=== PATIENT | male | born 1950 | race Caucasian/White ===

== ENCOUNTER 2018-03-30 13:51 | Outpatient (CLI) | payer MEDICARE ==
[~2018-03-30] VITALS: Ht 175.3 cm; Wt 61.7 kg
[2018-03-30 13:30] VITALS: BP 110/61
[~2018-03-30 13:51] MED LIST: ASPIRIN81 MG ORAL; SIMVASTATIN20 MG ORAL
[2018-03-30] MEDS ORDERED: AMLODIPINE BESYL5 MG ORAL (16:32)
[2018-03-30] MEDS ORDERED: CRESTOR20 MG ORAL (16:32)
[2018-03-30] MEDS ORDERED: BENAZEPRIL HCL10 MG ORAL (16:32)
--- NOTE | 2018-03-31 13:50 | GI Initial Consult Note ---
History of Present Illness General Date patient seen: Mar 30, 2018 Time patient seen: 13:48 Referring physician: O Reason for Consultation: Colonoscopy Present Illness HPI 67 year old male patient presents today for routine colonoscopy screening. The patient last colonoscopy was 5+ years ago. Denies any GI symptoms today; denies abdominal pain, N/V/D or constipation. Ambulatory NAD. Denies any unintentional weight loss or changes in dietary habits. No signs of abuse or neglect. Patient is not fall risk. Home Meds Reported Medications Rosuvastatin Calcium* (CRESTOR*) 20 Mg Tablet, 20 MG ORAL DAILY, TAB 03/30/18 Amlodipine Besylate* (AMLODIPINE BESYLATE*) 5 Mg Tablet, 5 MG ORAL DAILY, TAB 03/30/18 Benazepril Hcl* (BENAZEPRIL HCL*) 10 Mg Tablet, 10 MG ORAL DAILY, TAB 03/30/18 Aspirin* (ASPIRIN*) 81 Mg Tab.chew, 81 MG ORAL DAILY, TAB 02/26/13 Discontinued Reported Medications Simvastatin (ZOCOR) 20 Mg Tablet, 20 MG ORAL BEDTIME, TAB 02/26/13 Med list reviewed/reconciled: Yes Allergies: Coded Allergies: No Known Allergies (Unverified , 02/26/13) Patient History History Provided By: Patient, Medical Record PMH Narrative HLD CKD HTN Denies any surgical history. Pertinent Family History: none Social History: Denies: smoking, alcohol use, drug use, other Review of Systems All Other Systems: negative except mentioned in HPI Physical Exam Vital Signs Date Time Temp Pulse Resp B/P (MAP) Pulse Ox O2 Delivery O2 Flow Rate FiO2 03/30/18 13:30 98.0 72 110/61 99 Sp02 EP Interpretation: reviewed, normal General Appearance: well appearing, no apparent distress, alert Head: normocephalic EENT: PERRL/EOMI, normal ENT inspection Neck: supple Respiratory: normal breath sounds, no respiratory distress Cardiovascular: normal rate Gastrointestinal: normal inspection, non tender, soft, normal bowel sounds, non -distended Rectal: deferred Genitourinary: deferred Musculoskeletal: normal inspection, back normal Neurologic: normal inspection, alert, oriented x3, responsive Psychiatric: normal inspection, judgement/insight normal, memory normal Skin: normal inspection, normal color, no rash, warm/dry, palpation normal, well hydrated Lymphatic: normal inspection, no adenopathy GI: Plan Problems: (1) HLD (hyperlipidemia) (2) CKD (chronic kidney disease) (3) HTN (hypertension) (4) Colonoscopy planned Plan Colonoscopy to be scheduled pending PA, will contact patient. - CLD & (Nulytely/Suprep/Movi-Prep) prep instructions given and acknowledged by patient. - NPO @ [place] day prior procedure explained. Seen with Dr. Cruz. Thank you for this patient referral. The patient was seen and examined at bedside and all new and available data was reviewed in the patients chart. I agree with the above findings, impression and plan. (Patient seen earlier today. Signature stamp does not reflect patient encounter time.). - MD Stacy GrahamSierra Vista Regional Health CenterBar PERSONNEL RECORDS CLERK Mar 31, 2018 13:50
== END 2018-03-30 14:21 | disposition home or self-care (01) ==
LOC: PAN 13:51
DX: Z12.11 Encounter for screening for malignant neoplasm of colon (principal); E78.5 Hyperlipidemia, unspecified; I12.9 Hypertensive chronic kidney disease with stage 1 through stage 4 chronic kidney disease, or unspecified chronic kidney disease; N18.9 Chronic kidney disease, unspecified
CPT/HCPCS: 99202

== ENCOUNTER 2018-04-14 07:52 | Day surgery (SDC) | payer MEDICARE ==
[2018-04-14] VITALS (7 sets, daily range): BP systolic 109–137; BP diastolic 61–84
[~2018-04-14] VITALS: Ht 175.3 cm; Wt 59.0 kg
[~2018-04-14 07:52] MED LIST changes: +AMLODIPINE BESYL5 MG ORAL; +BENAZEPRIL HCL10 MG ORAL; +CRESTOR20 MG ORAL
--- NOTE | 2018-04-14 09:39 | Short Stay Surgery H&P ---
History of Present Illness History of Present Illness Chief Complaint see recent office note HPI [place] is a 67 year old male who was admitted on for Colonscreening Patient History Allergies: Coded Allergies: No Known Allergies (Unverified , 04/14/18) Medication History Scheduled Amlodipine Besylate* (Amlodipine Besylate*), 5 MG ORAL DAILY, (Reported) Aspirin* (Aspirin*), 81 MG ORAL DAILY, (Reported) Benazepril Hcl* (Benazepril Hcl*), 10 MG ORAL DAILY, (Reported) Rosuvastatin Calcium* (Crestor*), 20 MG ORAL DAILY, (Reported) Physical Exam Vital Signs Last Vital Signs Date Time Temp Pulse Resp B/P (MAP) Pulse Ox O2 Delivery O2 Flow Rate FiO2 04/14/18 08:49 Room Air 04/14/18 08:37 97.2 104 14 137/84 99 Plan Attestation Are the patient's medical conditions optimized for surgery? David Cruz MD Apr 14, 2018 09:39
--- NOTE | 2018-04-14 09:39 | Pre-Procedure Note/Attestation ---
Pre-Procedure Note/Attestation Complete Prior to Procedure Planned Procedure: not applicable Procedure Narrative: colonoscopy Indications for Procedure Pre-Operative Diagnosis: screening Attestation I attest that I discussed the nature of the procedure; its benefits; risks and complications; and alternatives (and the risks and benefits of such alternatives ), prior to the procedure, with the patient (or the patient's legal patient access representative). I attest that, if there was a reasonable possibility of needing a blood transfusion, the patient (or the patient's legal patient access representative) was given the [facility] standardized written summary, pursuant to the [place] Blood Safety Act ([place] Health and Safety Code # 1645, as amended). I attest that I re-evaluated the patient just prior to the surgery and that there has been no change in the patient's H&P, except as documented below: David Cruz MD Apr 14, 2018 09:39
[2018-04-14] MEDS ORDERED: Midazolam 2mg/2ml Inj IVP PRN (10:00)
[2018-04-14] MEDS ORDERED: Atropine Inj 1mg/10ml Syr IV PRN (10:00)
[2018-04-14] MEDS ORDERED: DiphenhydrAMINE 50mg/ml Inj IVP PRN (10:00)
[2018-04-14] MEDS ORDERED: fentaNYL 100 mcg/2 mL IV PRN (10:00)
--- NOTE | 2018-04-14 10:23 | Endoscopy Procedure Note ---
Endoscopy Procedure Note General Indication for Procedure: screening Procedures Performed: colonoscopy Operative Findings/Diagnosis: diverticulosis Specimen: none Pt Tolerated Procedure Well: Yes Estimated Blood Loss: none Anesthesia Anesthesiologist: roger Anesthesia: MAC Inserted Devices Implant(s) used?: No Quality Quality of Bowel Preparation: Excellent Did scope reach the cecum?: Yes Was there any complications?: No GI Core Measures 50 yrs or older w/o bx or poly: No 10yrs. F/U not recommended: Yes If not recommended, why?: Above average risk 10 yrs. F/U needed: Yes 18 years or older w/prev. colo: Yes <3yrs. since last colonoscopy: No David Cruz MD Apr 14, 2018 10:23
--- NOTE | 2018-04-14 10:45 | Anethesia Preoperative Eval ---
Anesthesia Pre-op PMH/ROS General Date of Evaluation: Apr 14, 2018 Time of Evaluation: 09:35 Anesthesiologist: shanda ASA Score: ASA 3 Mallampati Score Class I : Soft palate, uvula, fauces, pillars visible Class II: Soft palate, uvula, fauces visible Class III: Soft palate, base of uvula visible Class IV: Only hard plate visible Mallampati Classification: Class II Surgeon: marci Diagnosis: hx/o colon polyps Surgical Procedure: colonoscopy Anesthesia History: none Family History: no anesthesia problems Allergies: Coded Allergies: No Known Allergies (Unverified , 04/14/18) Medications: see eMAR Patient NPO?: Yes Past Medical History Cardiovascular: Reports: HTN, other - hypercholestrolemia Gastrointestinal/Genitourinary: Reports: CRI, other Neurologic/Psychiatric: Reports: depression/anxiety Anesthesia Pre-op Phys. Exam Physician Exam Last Vital Signs Date Time Temp Pulse Resp B/P (MAP) Pulse Ox O2 Delivery O2 Flow Rate FiO2 04/14/18 08:49 Room Air 04/14/18 08:37 97.2 104 14 137/84 99 Constitutional: NAD Neurologic: CN 2-12 intact Cardiovascular: RRR Respiratory: CTA Gastrointestinal: S/NT/ND Airway Exam Mallampati Score: Class II MO: full Neck: flexible TMD: 2fb ROM: full Anesthesia Pre-op A/P Studies Pre-op Studies: EKG - sinus tachycardia Risk Assessment & Plan Assessment: asa3 Plan: mac Status Change Before Surgery: No Pre-Antibiotics Drug: Clarice Griffin MD Apr 14, 2018 10:45
--- NOTE | 2018-04-14 10:47 | Immediate Post-Op Evaluation ---
Immediate Post-Op Evalulation Immediate Post-Op Evalulation Procedure: colonoscopy Date of Evaluation: Apr 14, 2018 Time of Evaluation: 10:42 IV Fluids: 800ml 0.9ns Blood Products: none Estimated Blood Loss: negligible Blood Pressure Systolic: 113 Blood Pressure Diastolic: 64 Pulse Rate: 91 Respiratory Rate: 18 O2 Sat by Pulse Oximetry: 100 Temperature (Fahrenheit): 98.1 Pain Score (1-10): 0 Nausea: No Vomiting: No Complications none Patient Status: awake, reacts, patent Hydration Status: adequate Drug: Clarice Griffin MD Apr 14, 2018 10:47
--- NOTE | 2018-04-14 10:49 | 48 Hour Post Anesthesia Eval ---
Post Anesthesia Evaluation Procedure: colonoscopy Date of Evaluation: Apr 14, 2018 Time of Evaluation: 10:44 Blood Pressure Systolic: 120 0: 70 Pulse Rate: 89 Respiratory Rate: 18 Temperature (Fahrenheit): 98.1 O2 Sat by Pulse Oximetry: 100 Airway: patent Nausea: No Vomiting: No Pain Intensity: 0 Hydration Status: adequate Cardiopulmonary Status: stable Mental Status/LOC: patient returned to baseline Post-Anesthesia Complications: none Follow-up care needed: N/A Clarice Shea MD Apr 14, 2018 10:49
--- NOTE | 2018-04-14 17:46 | Procedure Note ---
DATE OF PROCEDURE: 04/14/2018 SURGEON: David Cruz M.D. PROCEDURE: Colonoscopy. ANESTHESIA: Per Dr. Muñoz. INSTRUMENT: Olympus adult flexible colonoscope. INDICATION: 1. Screening colonoscopy. 2. History of colonic polyps. REASON FOR PROCEDURE: The procedure, risks, benefits, and possible consequences, including hemorrhage, aspiration, perforation and infection, and alternative treatments, were explained to the patient/legal guardian by Dr. David Cruz and the patient/legal guardian understood and accepted these risks. DESCRIPTION OF PROCEDURE: After informed consent was obtained and the patient was adequately sedated, first rectal exam was performed, which was positive for internal hemorrhoids. Then, the scope was advanced from the rectum into the cecum documented by appendiceal orifice, ileocecal valve, and right upper quadrant palpation. Quality of prep was very good. The patient had normal colonoscopy examination. There was some scattered diverticulosis in the left colon. No obvious polyp seen in this examination. Retroflexion of rectum showed evidence of internal hemorrhoids. SUMMARY OF FINDINGS: 1. Diverticulosis. 2. Internal hemorrhoids. RECOMMENDATIONS: Repeat colonoscopy in 5 years. David Cruz M.D. DR: TUYET JOB#: [id number] CC:
--- NOTE | 2018-04-15 15:14 | Cardiology Report ---
APPROVED REPORT EKG Measurement Heart [id number] IA [id number] Sinus tachycardia with 1st degree AV block Possible Left atrial enlargement Cannot rule out Anteroseptal infarct, age undetermined Abnormal ECG
== END 2018-04-14 11:40 | disposition home or self-care (01) ==
LOC: GAS 07:52
DX: Z12.11 Encounter for screening for malignant neoplasm of colon (principal); Z86.010 Personal history of colon polyps; K57.30 Diverticulosis of large intestine without perforation or abscess without bleeding; K64.8 Other hemorrhoids; I10 Essential (primary) hypertension; E78.00 Pure hypercholesterolemia, unspecified; F32.9 Major depressive disorder, single episode, unspecified; F41.9 Anxiety disorder, unspecified
CPT/HCPCS: 93005; G0105; 94003; 94150

== ENCOUNTER 2018-05-08 13:17 | Outpatient (CLI) | payer MEDICARE ==
[2018-05-08 13:49] VITALS: BP 109/61
--- NOTE | 2018-05-08 13:55 | GI Progress Note ---
Assessment/Plan Problems: (1) Colonoscopy planned SNOMED: 094456937 (2) HLD (hyperlipidemia) ICD Codes: E78.5 - Hyperlipidemia, unspecified SNOMED: 99388192 (3) HTN (hypertension) ICD Codes: I10 - Essential (primary) hypertension SNOMED: 19573732 Status: stable Status Narrative Discussed with Dr. Cruz. Assessment/Plan SUMMARY OF FINDINGS: 1. Diverticulosis. 2. Internal hemorrhoids. RECOMMENDATIONS: patient currently asymptomatic, RTC prn Repeat colonoscopy in 5 years. The patient was seen and examined at bedside and all new and available data was reviewed in the patients chart. I agree with the above findings, impression and plan. (Patient seen earlier today. Signature stamp does not reflect patient encounter time.). - David Cruz MD Subjective Gastrointestinal/Abdominal: Reports: no symptoms Objective Last 24 Hour Vital Signs Date Time Temp Pulse Resp B/P (MAP) Pulse Ox O2 Delivery O2 Flow Rate FiO2 05/08/18 13:49 98.3 62 109/61 100 General Appearance: WD/WN, no apparent distress, alert Cardiovascular: normal rate Respiratory/Chest: normal breath sounds, no respiratory distress Abdominal Exam: normal bowel sounds, non tender, soft Extremities: normal range of motion, non-tender Nicol Kumar [employer] May 08, 2018 13:55
== END 2018-05-08 13:47 | disposition home or self-care (01) ==
LOC: PAN 13:17
DX: K57.90 Diverticulosis of intestine, part unspecified, without perforation or abscess without bleeding (principal); K64.8 Other hemorrhoids; E78.5 Hyperlipidemia, unspecified; I10 Essential (primary) hypertension
CPT/HCPCS: 99212